=== PATIENT | male | born 1980 | race Caucasian/White ===

== ENCOUNTER → 2016-09-06 | Outpatient (CLI) | payer BC ==
--- NOTE | ~2016-09-06 | ST ---
[place], [place] EXERCISE STRESS TEST REPORT NAME[facility]: [id number] UNIT #: [id number] ROOM: DOCTOR: FRANCIS ROY MD BIRTHDATE: [birth year] DOS: EXERCISE STRESS TEST INDICATIONS: Increased cardiac awareness, palpitations, central chest discomfort. PROCEDURE: The patient walked on a full Perry protocol for 13 minutes 12 seconds and achieved a maximum heart rate of 185, which represented 99% of his maximum predicted heart rate at a workload of 16 mets. He stopped for fatigue and dyspnea. He did not have any chest pain, palpitations or lightheadedness. His resting heart rate of 60 emilee to 185. The resting blood pressure of 104/64 emilee to 170/78. No diagnostic ST changes occurred and his Grijalva treadmill score was 13.25 consistent with a low risk for heart disease. Recovery was normal and he achieved a heart rate of 100 within 3-1/2 minutes of recovery. IMPRESSIONS: 1. Excellent exercise capacity without chest pain or diagnostic electrocardiographic changes. 2. Grijalva treadmill score was 13.25 consistent with an excellent cardiac prognosis and a low risk for cardiac events. 3. Normal exercise stress test. FRANCIS ROY MD CM:STRESS:EXERCISE STRESS TEST REPORT [id number] FRANCIS ROY MD
== END | disposition home or self-care (01) ==
LOC: CARD 02:26
DX: R07.89 Other chest pain (principal); R00.2 Palpitations

== ENCOUNTER → 2019-02-05 | Outpatient (CLI) | payer BC | END | disposition home or self-care (01) | LOC: MRI 08:35 | DX: R41.3 Other amnesia (principal); R51 Headache ==